=== PATIENT | male | born 1940 | race Caucasian/White ===

== ENCOUNTER 2020-09-15 11:14 | Emergency (ER) | payer MEDICARE, SELFPAY ==
[2020-09-15 11:30] VITALS: BP 158/87; PULSE 69; RESP 14; TEMP 36.4; O2SAT 100
[2020-09-15 11:37] VITALS: BP 158/87; PULSE 69; RESP 14; TEMP 36.4; O2SAT 100
--- NOTE | 2020-09-15 11:46 | ED.EXTPRO ---
HPI - Extremity Problem General Chief complaint: Extremity Injury, Upper Stated complaint: Swollen, bruised Finger right) from Wasp bite Time Seen by Provider: 09/15/20 11:40 Source: patient and RN notes reviewed Mode of arrival: ambulatory Limitations: no limitations History of Present Illness HPI Narrative: 80-year-old male presents with concern for a insect sting to the second digit of his right hand. He reports he was stung on Friday and the area has become more swollen, red, discolored. He denies any intervention. He denies swollen lips, swollen tongue, breathing, difficulty swallowing. Denies any drainage from the area. Related Data Home Medications Medication Instructions Recorded Confirmed acetaminophen 500 mg tablet 500 mg PO Q6H PRN 07/30/19 09/15/20 aspirin 81 mg tablet,delayed 81 mg PO DAILY 07/30/19 09/15/20 release atorvastatin 20 mg tablet 20 mg PO DAILY 07/30/19 09/15/20 folic acid 1 mg tablet 1 mg PO DAILY 07/30/19 09/15/20 lisinopril 2.5 mg tablet 2.5 mg PO DAILY 07/30/19 09/15/20 metoprolol succinate 25 mg 12.5 mg PO DAILY tablet 07/30/19 09/15/20 tablet,extended release 24 hr Allergies Allergy/AdvReac Type Severity Reaction Status Date / Time No Known Allergies Allergy Unknown Verified 09/15/20 11:35 Review of Systems Review of Systems: CONSTITUTIONAL: Denies malaise, chills, sweats, or fever. ENT: Denies swollen lips, swollen tongue CARDIOVASCULAR: Denies chest pain, palpitations, or edema. RESPIRATORY: Denies dyspnea. SKIN: Reports swelling, discoloration, itching, redness to the second and third digits of the right hand MUSCULOSKELETAL: Denies muscle skeletal pain or myalgia. 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 There is no relevant family history pertinent to the presenting complaint Exam Narrative: GENERAL: Well-appearing, well-nourished, and in no acute distress. HEAD: Normocephalic EYES: PERRLA, conjunctivae clear NECK: Supple. CHEST: Speaks in full sentences. No respiratory distress. HEART: Regular rate and rhythm. Normal and equal peripheral pulses. EXTREMITIES: First and second digits of right hand have normal strength and sensation. 5/5 strength with digit flexion, extension. Range of motion normal. No clubbing, cyanosis. Moderate edema noted. Erythema, ecchymosis noted to the second digit. Mild tenderness. Skin intact. Normal digital cascade with flexion of fingers, median, ulnar and radial nerve intact. Normal sensation of each side of finger. Can not perform 'okay' sign due to swelling. No scissoring. Normal thumb opposition. Good capillary refill and radial pulse. Distal capillary refill less than 3 seconds. SKIN: Warn, dry, intact. Edema, erythema, ecchymosis noted to the second digit, edema noted to digit 3 NEURO: Alert and oriented x3. PSYCH: Normal mood and affect Course Course Emergency Course: Patient is aware of diagnosis, understands and agrees to treatment plan. Anticipatory guidance given. Patient agrees to follow-up as directed and is aware of reasons to seek care at the emergency department. Portions of
== END 2020-09-15 11:52 | disposition home or self-care (01) ==
PROVIDERS: Emergency Provider Nurse Practitioner
DX: L03.011 Cellulitis of right finger (principal); T63.461A Toxic effect of venom of wasps, accidental (unintentional), initial encounter; Z85.53 Personal history of malignant neoplasm of renal pelvis; Z85.118 Personal history of other malignant neoplasm of bronchus and lung
CPT/HCPCS: 99213; G0463